=== PATIENT | female | born 1965 | race Caucasian/White ===

== ENCOUNTER 2017-07-21 08:53 | Day surgery (SDC) | payer MEDICAID, OTHER ==
[~2017-07-21] VITALS: Ht 165.1 cm; Wt 69.0 kg
[2017-07-21] VITALS (9 sets, daily range): BP systolic 95–118; BP diastolic 48–67; PULSE 50–61; RESP 13–20; Ht 165.1 cm; Wt 69.0 kg
[2017-07-21] MEDS ORDERED: FER325 PO (10:13)
[2017-07-21 11:21] LABS: BASOPHIL # 0.1 10^3/ul (0.0-0.1); BASOPHILS % 1.1 % (0.0-2.0); EOSINOPHILS # 0.4 10^3/ul (0.0-0.5); EOSINOPHILS % 5.5 % (0.0-7.0); HEMATOCRIT 37.1 % (37.0-47.0); HEMOGLOBIN 12.1 g/dl (12.0-16.0); LYMPHOCYTES # 2.6 10^3/ul (0.8-2.9); LYMPHOCYTES % 35.4 % (15.0-51.0); MEAN CORPUSCULAR HEMOGLOBIN 28.9 pg (29.0-33.0); MEAN CORPUSCULAR HGB CONC 32.6 g/dl (32.0-37.0); MEAN CORPUSCULAR VOLUME 88.5 fl (82.0-101.0); MONOCYTE # 0.6 10^3/ul (0.3-0.9); MONOCYTES % 8.6 % (0.0-11.0); NEUTROPHIL # 3.7 10^3/ul (1.6-7.5); PLATELET COUNT 348 10^3/UL (140-415); RED BLOOD COUNT 4.19 10^6/ul (4.20-5.40); RED CELL DISTRIBUTION WIDTH 15.3 % (11.5-14.5); WHITE BLOOD COUNT 7.5 10^3/ul (4.8-10.8)
[2017-07-21] MEDS ORDERED: FENTAnyl 50 MCG/ML VIAL ONE (11:48)
[2017-07-21] MEDS ORDERED: PROPOFOL 20 ML ONE (12:08)
[2017-07-21] MEDS ORDERED: SUCCINYLCHOLINE CHLORIDE 100 MG/5 ML SYG IV ONE (12:08)
[2017-07-21] MEDS ORDERED: LIDOCAINE 2% (SDV) 5 ML INJ ONE (12:08)
[2017-07-21] MEDS ORDERED: SUGAMMADEX SODIUM 200 MG/2 ML VIAL IV ONE (12:08)
[2017-07-21] MEDS ORDERED: ROCURONIUM 50 MG INJ ONE (12:08)
--- NOTE | 2017-07-21 12:23 | SIPON ---
Date/Time of Note Date/Time of Note DATE: 07/21/17 TIME: 12:20 Operative Report Preoperative Diagnosis Abnormal Uterine Bleeding Postoperative Diagnosis Same Operation/Procedure Performed Dilation and Curettage Surgeon Althea Hirsch MD diver assistant None Anesthesia: general Estimated blood loss: minimal Transfusion Required none Specimen Endocervical curetting and endometrial curetting Grafts/Implants none Complications none ALTHEA HIRSCH MD Jul 21, 2017 12:23
[2017-07-21] MEDS ORDERED: DIPHENHYDRAMINE 50 MG INJ IV PRN (12:30)
[2017-07-21] MEDS ORDERED: ONDANSETRON 4 MG INJ IV PRN (12:30)
[2017-07-21] MEDS ORDERED: METOCLOPRAMIDE 10 MG INJ IV PRN (12:30)
[2017-07-21] MEDS ORDERED: FENTAnyl 50 MCG/ML VIAL IV PRN ×2 (12:30)
[2017-07-21] MEDS ORDERED: HYDROmorphONE (0.2 MG/ML) 10ML SYG IV PRN ×2 (12:30)
[2017-07-21] MEDS ORDERED: MEPERIDINE 25 MG INJ IV PRN (12:30)
--- NOTE | 2017-07-21 13:41 | OPR ---
DATE OF OPERATION: 07/21/2017 PREOPERATIVE DIAGNOSIS: Abnormal uterine bleeding. POSTOPERATIVE DIAGNOSIS: Abnormal uterine bleeding. OPERATION PERFORMED: Endocervical curettage with dilation and endometrial curettage. SURGEON: Benjamín Almanza MD. ANESTHESIA: General. ANESTHESIOLOGIST: Dr. De Oliveira. OPERATIVE PROCEDURE: The patient was taken to the operating room and placed on the operating table in supine position. After adequate general anesthesia was given, the patient was placed in dorsal lithotomy position. The area was prepped and draped in the usual sterile fashion. A speculum was placed inside the vagina. Using Kevorkian curette, endocervical curettage was performed. The specimen obtained was sent to Pathology. Next, using cervical dilators, the cervical os was dilated and using a sharp curette, endometrial curettage was performed and specimen obtained was sent to Pathology. All the instruments were removed. Adequate hemostasis was assured. Patient tolerated the procedure well. The patient was awakened from anesthesia and transferred to recovery room in stable condition. ESTIMATED BLOOD LOSS: Minimal. COUNTS: All counts were correct. Dictated By: Benjamín Almanza MD /rosemary/neeru /Document#: [id number]
--- NOTE | 2017-07-21 15:16 | PREOPHP ---
DATE OF ADMISSION: 07/21/2017 HISTORY OF PRESENT ILLNESS: The patient is a 51-year-old female, 4, para 3, admitted with history of prolonged menses. PAST MEDICAL HISTORY: Unremarkable. PAST SURGICAL HISTORY: Bilateral tubal ligation. ALLERGIES: NO KNOWN ALLERGIES. FAMILY HISTORY: Diabetes. PHYSICAL EXAMINATION: VITAL SIGNS: The patient is afebrile. Vital signs stable. HEENT: Within normal limits. NECK: Within normal limits. CHEST: Within normal limits. ABDOMEN: Soft, nontender, and nondistended. PELVIC: Normal. EXTREMITIES: Within normal limits. NEUROLOGIC: Within normal limits. IMPRESSION: Abnormal uterine bleeding. PLAN: Dilation and curettage. Risks, benefits and alternatives of procedure were explained to the patient. The patient states she understands and gave me informed consent for the procedure. Dictated By: Benjamín Almanza MD /rosmeary/romelia /Document#: [id number]
--- NOTE | 2017-07-22 00:15 | RADRPT ---
Vent Rate: 55 bpm RR Interval: 0 msec WA Interval: 154 msec QRS Duration: 84 msec QT Interval: 466 msec QTC Interval: 445 msec P-R-T Kimball: 50 - 62 - 39 degrees Sinus bradycardia Otherwise normal ECG Electronically Signed By: Marco Sánchez [id number]
== END 2017-07-21 13:54 | disposition home or self-care (01) ==
LOC: SDS 08:53
PROVIDERS: ATTEND Obstetrics & Gynecology
DX: N93.9 Abnormal uterine and vaginal bleeding, unspecified (principal)
CPT/HCPCS: 58120; 85025; 86850; 86900; 86901; 88305; 93005; J2175; J2765; J3010; Z7512; Z7610; J7999

== ENCOUNTER 2017-07-24 13:28 | Emergency (ER) | payer OTHER ==
[~2017-07-24] VITALS: Ht 162.6 cm; Wt 71.0 kg
[~2017-07-24 13:28] MED LIST: FER325 PO
[2017-07-24 13:45] VITALS: Ht 162.6 cm; Wt 71.0 kg
[2017-07-24 15:58] LABS: BASOPHIL # 0.1 10^3/ul (0.0-0.1); EOSINOPHILS # 0.5 10^3/ul (0.0-0.5); EOSINOPHILS % 6.3 % (0.0-7.0); HEMATOCRIT 35.5 % (37.0-47.0); HEMOGLOBIN 11.9 g/dl (12.0-16.0); LYMPHOCYTES # 2.6 10^3/ul (0.8-2.9); LYMPHOCYTES % 35.8 % (15.0-51.0); MEAN CORPUSCULAR HEMOGLOBIN 29.7 pg (29.0-33.0); MEAN CORPUSCULAR HGB CONC 33.5 g/dl (32.0-37.0); MEAN CORPUSCULAR VOLUME 88.5 fl (82.0-101.0); MEAN PLATELET VOLUME 9.4 fl (7.4-10.4); MONOCYTE # 0.7 10^3/ul (0.3-0.9); MONOCYTES % 9.6 % (0.0-11.0); NEUTROPHIL # 3.4 10^3/ul (1.6-7.5); NEUTROPHILS % 47.2 % (39.0-77.0); PLATELET COUNT 344 10^3/UL (140-415); RED BLOOD COUNT 4.01 10^6/ul (4.20-5.40); RED CELL DISTRIBUTION WIDTH 14.8 % (11.5-14.5); WHITE BLOOD COUNT 7.2 10^3/ul (4.8-10.8)
[2017-07-24 16:29] LABS: CALCIUM 9.2 mg/dl (8.4-10.2); CREATININE 0.71 mg/dl (0.44-1.00); POTASSIUM 3.8 mmol/L (3.5-5.1)
--- NOTE | 2017-07-24 17:03 | RADRPT ---
PROCEDURE: US Pelvis Transabdominal and Transvaginal. CLINICAL INDICATION: Vaginal bleeding after recent dilatation and curettage. TECHNIQUE: Multiple sonographic images of the pelvis were obtained utilizing botello scale, Doppler a nd color flow imaging with transabdominal and endovaginal technique. The images were reviewed on a PACS workstation. COMPARISON: None. FINDINGS: The uterus is visualized and measures 9.9 x 5.7 x 8.8 cm. The endometrial echo complex measures 2.6 mm in thickness. A posterior uterine fibroid measures 3.4 cm. An anterior uterine fibroid measures 2 .9 cm. The right ovary measures 3.1 x 1.6 x 2.8 cm . The left ovary is not well visualized. The right ova ry demonstrates a normal echogenicity and vascularity.. No adnexal masses or pelvic free fluid are noted. IMPRESSION: Multifibroid uterus. Left ovary not well visualized. If characterization of this structure is needed repeat exam or CT/MR I is recommended. If further characterization of the organs of the pelvis is needed MRI should be considered. RPTAT: AA .Konstantin Barrett MD, MD Date Time Electronically viewed and signed by .Konstantin Barrett MD, on 07/24/2017 17:03 .P/
[2017-07-24 17:18] LABS: ADD UMIC NO; UR ASCORBIC ACID 40 mg/dL (NEGATIVE); UR BILIRUBIN (Dip) NEGATIVE (NEGATIVE); UR BLOOD (Dip) NEGATIVE (NEGATIVE); UR CLARITY CLEAR (CLEAR); UR COLOR YELLOW (YELLOW); UR GLUCOSE (Dip) NEGATIVE (NEGATIVE); UR KETONES (Dip) NEGATIVE (NEGATIVE); UR LEUKOCYTE ESTERASE (Dip) NEGATIVE Leu/ul (NEGATIVE); UR NITRITE (Dip) NEGATIVE (NEGATIVE); UR SPECIFIC GRAVITY (Dip) 1.012 (1.003-1.030); UR TOTAL PROTEIN (Dip) NEGATIVE (NEGATIVE); UR UROBILINOGEN (Dip) NEGATIVE (NEGATIVE)
[2017-07-24] MEDS ORDERED: KETOROLAC 30 MG INJ IV STA (17:22)
[2017-07-24 17:31] VITALS: BP 109/55; PULSE 55; RESP 18
--- NOTE | 2017-07-24 18:11 | ERD ---
ER Documentation Chief Complaint Date/Time DATE: 07/24/17 TIME: 18:06 Chief Complaint p D+C 07/14/17: dizzy, chills, pelvic pain x3d. VBx2w saturating 1pad/ hr HPI 51-year-old female with a history of uterine fibroids status post D and C 3 days ago performed by Dr. Archie jordan from his office for evaluation for dizziness and chills. She states that the next day after surgery she felt fine. However her vaginal bleeding has increased ever since surgery. She is using about 1 pad per hour. She has also been feeling lightheaded and having mild headaches which she has had before. She denies any fever, nausea, vomiting , diarrhea, constipation, or significant abdominal pain. She does have some lower abdominal cramping when she has the bleeding. ROS All systems reviewed and are negative except as per history of present illness. Medications Home Meds Reported Medications Ferrous Sulfate* (Ferrous Sulfate*) 325 Mg Tabec, 325 MG PO DAILY, TAB 07/21/17 Allergies Allergies: Coded Allergies: No Known Allergies (Verified Allergy, Unknown, 07/24/17) PMhx/Soc History of Surgery: Yes (BTL) Anesthesia Reaction: No Hx Neurological Disorder: No Hx Respiratory Disorders: No Hx Cardiac Disorders: No Hx Psychiatric Problems: No Hx Miscellaneous Medical Probl: Yes (HEAVY MESTRUATION) Hx Alcohol Use: Yes (OCCASIONAL) Hx Substance Use: No Hx Tobacco Use: Yes Smoking Status: Current every day smoker FmHx Family History: No diabetes Physical Exam Vitals Vital Signs Date Time Temp Pulse Resp B/P Pulse Ox O2 Delivery O2 Flow Rate FiO2 07/24/17 17:31 55 18 109/55 100 Room Air 07/24/17 13:45 98.5 61 16 118/58 99 Physical Exam Const: Well-appearing, no apparent distress, nontoxic Head: Atraumatic Eyes: Normal Conjunctiva ENT: Normal External Ears, Nose and Mouth. Neck: Full range of motion..~ No meningismus. Resp: Clear to auscultation bilaterally Cardio: Regular rate and rhythm, no murmurs Abd: Soft, non tender, non distended. Rebound or guarding. No masses palpated. Normal bowel sounds Skin: No petechiae or rashes Back: No midline or flank tenderness Ext: No cyanosis, or edema Neur: Awake and alert, oriented 3, strength and sensations intact, cranial nerves intact, normal gait Psych: Normal Mood and Affect Result Diagram: 07/24/17 1545 07/24/17 1545 Results 24 hrs Laboratory Tests Test 07/24/17 15:45 07/24/17 16:50 White Blood Count 7.210^3/ul Red Blood Count 4.0110^6/ul Hemoglobin 11.9g/dl Hematocrit 35.5% Mean Corpuscular Volume 88.5fl Mean Corpuscular Hemoglobin 29.7pg Mean Corpuscular Hemoglobin Concent 33.5g/dl Red Cell Distribution Width 14.8% Platelet Count 24293^3/UL Mean Platelet Volume 9.4fl Neutrophils % 47.2% Lymphocytes % 35.8% Monocytes % 9.6% Eosinophils % 6.3% Basophils % 1.0% Nucleated Red Blood Cells % 0.0/100WBC Neutrophils # 3.410^3/ul Lymphocytes # 2.610^3/ul Monocytes # 0.710^3/ul Eosinophils # 0.510^3/ul Basophils # 0.110^3/ul Nucleated Red Blood Cells # 0.010^3/ul Sodium Level 141mmol/L Potassium Level 3.8mmol/L Chloride Level 106mmol/L Carbon Dioxide Level 26mmol/L Anion Gap 13 Blood Urea Nitrogen 18mg/dl Creatinine 0.71mg/dl Glucose Level 87mg/dl Calcium Level 9.2mg/dl Urine Color YELLOW Urine Clarity CLEAR Urine pH 8.0 Urine Specific [place] 1.012 Urine Ketones NEGATIVEmg/dL Urine Nitrite NEGATIVEmg/dL Urine Bilirubin NEGATIVEmg/dL Urine Urobilinogen NEGATIVEmg/dL Urine Leukocyte Esterase NEGATIVELeu/ul Urine Hemoglobin NEGATIVEmg/dL Urine Glucose NEGATIVEmg/dL Urine Total Protein NEGATIVEmg/dl Current Medications Medications (Trade) Dose Ordered Sig/Dimas Route PRN Reason Start Time Stop Time Status Last Admin Dose Admin Ketorolac Tromethamine (Toradol) 30 mg ONCE STAT IV 07/24/17 17:22 07/24/17 17:23 DC 07/24/17 17:40 Procedures/MDM Labs CBC: no anemia or evidence of infection BMP: No evidence of electrolyte abnormality, renal failure, hypoglycemia, liver failure, or biliary obstruction UA: no evidence of infection US transvaginal: multifibroid uterus, no other abnormalities MDM Patient is presenting with lightheadedness and vaginal bleeding after the uterine surgery 3 days ago. Her vitals are stable and she is afebrile and well- appearing. Her abdominal exam was benign. CBC was done to evaluate for anemia and she only has mild anemia with no other abnormalities. Urinalysis did not show evidence of infection. Ultrasound just showed fibroids. I spoke with her sports centre manager and discuss the results. He agrees that she is stable for discharge at this time. I discussed the results with the patient and the plan and she feels comfortable with the plan. I have given her Toradol here headache , which improved all of her symptoms. Return precautions were discussed with the patient. At this time I do not have suspicion for a pelvic infection. Patient discharged in a stable condition. Departure Diagnosis: Primary Impression: Dizziness Additional Impression: Vaginal bleeding Condition: Stable Patient Instructions: Understanding Uterine Bleeding, Dizziness, Unk Cause, Uterine Fibroids Referrals: ALTHEA HIRSCH MD Additional Instructions: Return to the ER for any worsening symptoms. Otherwise, follow-up with your sports centre manager within 2 weeks. SALINAS DOMINIQUE MD Jul 24, 2017 18:11
[2017-07-24] MEDS ORDERED: MECL12.574 PO (18:43)
== END 2017-07-24 18:55 | disposition home or self-care (01) ==
LOC: E/R 13:28
DX: R42 Dizziness and giddiness (principal); N93.9 Abnormal uterine and vaginal bleeding, unspecified; F17.210 Nicotine dependence, cigarettes, uncomplicated
CPT/HCPCS: 36415; 76856; 80048; 81003; 85025; 86850; 86900; 86901; 96374; J1885; Z7502

== ENCOUNTER 2017-08-03 10:07 | Emergency (ER) | payer OTHER ==
[~2017-08-03] VITALS: Ht 152.4 cm; Wt 67.0 kg
[~2017-08-03 10:07] MED LIST changes: +MECL12.574 PO
[2017-08-03 10:12] VITALS: Ht 152.4 cm; Wt 67.0 kg
[2017-08-03] MEDS ORDERED: ONDANSETRON 4 MG INJ IV STA (11:25)
[2017-08-03] MEDS ORDERED: SOD CHLORIDE 0.9% 1,000 ML IV STA (11:25)
--- NOTE | 2017-08-03 11:56 | ERD ---
ER Documentation Chief Complaint Date/Time DATE: 08/03/17 TIME: 11:53 Chief Complaint dizziness x 20 days HPI Patient is a 51-year-old female presents to the ED with left-sided pelvic pain, nausea, dizziness, body aches and chills 2 weeks. Patient states that her primary care provider, Dr Lagunas sent her for evaluation. Patient has hx of fibroids and had a D/c on 07/21/2017. States she has been having vaginal bleeding since, last 3 days has been using 8 pads a day. STates the bleeding is similar to what she experienced prior to fibroids. She also states dizziness has gotten worse. Denies trauma or falls, LOC. ROS All systems reviewed and are negative except as per history of present illness. Medications Home Meds Active Scripts Ondansetron (Ondansetron Odt) 4 Mg Tab.rapdis, 4 MG PO Q6H Y for NAUSEA AND/OR VOMITING, #10 TAB Prov:NICKOLAS VARGAS PA-C 08/03/17 Meclizine Hcl* (Antivert*) 12.5 Mg Tab, 12.5 MG PO Q6H Y for DIZZINESS, #20 TAB Prov:NICKOLAS VARGAS PA-C 08/03/17 Meclizine Hcl* (Antivert*) 12.5 Mg Tab, 25 MG PO Q6H Y for DIZZINESS, #20 TAB Prov:SALINAS DOMINIQUE MD 07/24/17 Reported Medications Ferrous Sulfate* (Ferrous Sulfate*) 325 Mg Tabec, 325 MG PO DAILY, TAB 07/21/17 Allergies Allergies: Coded Allergies: No Known Allergies (Verified Allergy, Unknown, 07/24/17) PMhx/Soc History of Surgery: Yes (BTL) Anesthesia Reaction: No Hx Neurological Disorder: No Hx Respiratory Disorders: No Hx Cardiac Disorders: No Hx Psychiatric Problems: No Hx Miscellaneous Medical Probl: Yes (HEAVY MESTRUATION) Hx Alcohol Use: Yes (OCCASIONAL) Hx Substance Use: No Hx Tobacco Use: Yes Smoking Status: Never smoker FmHx Family History: No coronary disease, No diabetes, No other Physical Exam Vitals Vital Signs Date Time Temp Pulse Resp B/P Pulse Ox O2 Delivery O2 Flow Rate FiO2 08/03/17 10:12 98.1 63 18 132/63 99 Physical Exam GENERAL: Well-developed, well-nourished female. Appears in mild distress. HEAD: Normocephalic, atraumatic. EYES: Pupils are equally reactive bilaterally. EOMs grossly intact. No conjunctival erythema. ENT: Moist mucous membranes. No uvula deviation. No kissing tonsils. No exudates. NECK: Supple. No lymphadenopathy or thyromegaly. No meningismus. negative kernig. negative brudinski. LUNG: Clear to auscultation bilaterally. No rhonchi, wheezing, rales or coarse breath sounds. HEART: Regular rate and rhythm. No murmurs, rubs or gallops. ABDOMEN: No scars, ecchymosis or rashes noted. Soft, and nondistended. Positive bowel sounds in all four quadrants. No rebound tenderness, no guarding. (-) McBurneys point tenderness. No CVA tenderness. left sided pelvic pain. BACK: No midline tenderness. Extremities: Equal pulses bilaterally. No peripheral clubbing, cyanosis or edema. No unilateral leg swelling. NEUROLOGIC: Alert and oriented. Moving all four extremities. 5/5 strength in all extremities. Normal speech. Steady gait. cn 2-12 intact. no ataxis. negative romberg SKIN: Normal color. Warm and dry. No rashes or lesions. Capillary refill < 2 seconds Result Diagram: 08/03/17 1150 08/03/17 1150 Results 24 hrs Laboratory Tests Test 08/03/17 11:48 08/03/17 11:50 Urine Color YELLOW Urine Clarity SLIGHTLY CLOUDY Urine pH 7.0 Urine Specific [place] 1.015 Urine Ketones NEGATIVEmg/dL Urine Nitrite NEGATIVEmg/dL Urine Bilirubin NEGATIVEmg/dL Urine Urobilinogen NEGATIVEmg/dL Urine Leukocyte Esterase NEGATIVELeu/ul Urine Microscopic RBC > 182/HPF Urine Microscopic WBC 2/HPF Urine Bacteria FEW/HPF Urine Hemoglobin 1+mg/dL Urine Glucose NEGATIVEmg/dL Urine Total Protein NEGATIVEmg/dl White Blood Count 7.710^3/ul Red Blood Count 4.1710^6/ul Hemoglobin 12.6g/dl Hematocrit 36.9% Mean Corpuscular Volume 88.5fl Mean Corpuscular Hemoglobin 30.2pg Mean Corpuscular Hemoglobin Concent 34.1g/dl Red Cell Distribution Width 14.3% Platelet Count 77629^3/UL Mean Platelet Volume 9.4fl Neutrophils % 48.0% Lymphocytes % 37.1% Monocytes % 7.8% Eosinophils % 5.4% Basophils % 1.4% Nucleated Red Blood Cells % 0.0/100WBC Neutrophils # 3.710^3/ul Lymphocytes # 2.910^3/ul Monocytes # 0.610^3/ul Eosinophils # 0.410^3/ul Basophils # 0.110^3/ul Nucleated Red Blood Cells # 0.010^3/ul Sodium Level 144mmol/L Potassium Level 3.7mmol/L Chloride Level 107mmol/L Carbon Dioxide Level 26mmol/L Anion Gap 15 Blood Urea Nitrogen 15mg/dl Creatinine 0.75mg/dl Glucose Level 105mg/dl Calcium Level 9.1mg/dl Total Bilirubin 0.2mg/dl Direct Bilirubin 0.00mg/dl Indirect Bilirubin 0.2mg/dl Aspartate Amino Transf (AST/SGOT) 29IU/L Alanine Aminotransferase (ALT/SGPT) 40IU/L Alkaline Phosphatase 67IU/L Total Protein 7.8g/dl Albumin 4.5g/dl Globulin 3.30g/dl Albumin/Globulin Ratio 1.36 Lipase 99U/L Current Medications Medications (Trade) Dose Ordered Sig/Dimas Route PRN Reason Start Time Stop Time Status Last Admin Dose Admin Sodium Chloride (NS) 1,000 ml @ 1,000 mls/hr Q1H STAT IV 08/03/17 11:25 08/03/17 12:24 DC 08/03/17 11:57 Ondansetron HCl (Zofran Inj) 4 mg ONCE STAT IV 08/03/17 11:25 08/03/17 11:28 DC 08/03/17 11:58 IV Flush 10 ml 10 ml STK-MED ONCE .ROUTE 08/03/17 12:58 08/03/17 12:59 DC 08/03/17 13:16 Sodium Chloride (NS) 100 ml @ ud STK-MED ONCE .ROUTE 08/03/17 12:58 08/03/17 12:59 DC 08/03/17 13:17 Iohexol (Omnipaque 300mg/ ml) 150 ml STK-MED ONCE .ROUTE 08/03/17 12:58 08/03/17 12:59 DC 08/03/17 13:19 Procedures/MDM ER COURSE: I kept the patient and/or family informed of laboratory and diagnostic imaging results throughout the emergency room course. EKG, MONITORS, & DIAGNOSTIC IMAGING: [place] [id number] Radiology Main Line: [phone] DIAGNOSTIC IMAGING REPORT Patient: IVAN REYNA : 1965 Age: 51 Sex: F MR #: [id number] DOS: 08/03/17 1125 Ordering MD: NICKOLAS VARGAS PA-C Location: [facility] Room/Bed: PROCEDURE: CT Abdomen and Pelvis with contrast. CLINICAL INDICATION: Abdomen and pelvis pain. TECHNIQUE: CT scan of the abdomen and pelvis with contrast was performed. The patient was scanned following the uncomplicated intravenous administration of 100 cc of Omnipaque-300. Coronal and sagittal reformatted images were obtained from the axial source images. Images were reviewed on a high- resolution PACS workstation. Total exam DLP is 761.43 mGy-cm. CTDIvol is 12.56 mGy. One or more of the following dose reduction techniques were used: Automated exposure control, adjustment of the mA and/or kV according to patient size, use of iterative reconstruction technique. COMPARISON: None. FINDINGS: The lung bases are normal. There is no pleural effusion. The liver is normal in size and attenuation. There is no focal hepatic lesion. The gallbladder is contracted. There is mild edema surrounding the gallbladder. The spleen is normal in size. There is no focal splenic lesion. Both adrenals are normal with no enlargement or mass. The pancreas is unremarkable with no mass or evidence of pancreatitis. Both kidneys demonstrate normal contrast enhancement. There is no renal mass or hydronephrosis. The abdominal aorta is not dilated. There is calcification in the aorta consistent with atherosclerosis. There is no retroperitoneal lymphadenopathy or mass. There is no pelvic lymphadenopathy. The uterus is markedly enlarged and has multiple fibroids. There is no other pelvic mass. The bladder and distal ureters are normal. The appendix is well seen and appears normal. There is diverticulosis of the colon without evidence of diverticulitis. The bowel and mesentery are otherwise normal. There is no free fluid or free gas. The osseous structures are unremarkable with no fracture or lytic lesion. IMPRESSION: 1. Contracted gallbladder with mild surrounding edema. This may indicate cholecystitis. Correlation with gallbladder ultrasound should be considered. 2. Atherosclerosis. 3. Enlarged uterus with multiple fibroids. 4. Normal appendix. 5. Diverticulosis of the colon without evidence of diverticulitis. 6. Otherwise unremarkable study. RPTAT: QQ .Sridhar Carr MD, Date Time Electronically viewed and signed by .Sridhar Carr MD, MD on 08/03/2017 13:24 .R/ CC: NICKOLAS VARGAS PA-C [place] [address] Radiology Main Line: [phone] DIAGNOSTIC IMAGING REPORT Patient: IVAN REYNA : 1965 Age: 51 Sex: F MR #: [id number] DOS: 08/03/17 1125 Ordering MD: NICKOLAS VARGAS PA-C Location: [facility] Room/Bed: PROCEDURE: US Pelvis. CLINICAL INDICATION: Pelvic pain and vaginal bleeding for 3 months. TECHNIQUE: The pelvis was evaluated with transabdominal and transvaginal sonography in the axial and sagittal planes. COMPARISON: No prior study is available for comparison. FINDINGS: The uterus measures 8.2 x 5.8 x 7.7 cm. The uterus is diffusely heterogeneous with multiple masses consistent with fibroids. A posterior right fibroid measures 3.4 x 2.5 x 3.5 cm. A left lateral posterior fibroid measures 3.6 x 3.4 x 3.5 cm. A left lateral fibroid measures 3.3 x 3.0 x 2.9 cm. The endometrium is unremarkable measuring 11.9 mm. The ovaries are not visualized. There is no other pelvic mass or free fluid. IMPRESSION: 1. Enlarged uterus with multiple fibroids. 2. Ovaries not visualized. 3. Otherwise normal pelvic ultrasound. RPTAT: QQ .Sridhar Carr MD, Date Time Electronically viewed and signed by .Sridhar Carr MD, MD on 08/03/2017 13:01 .R/ CC: NICKOLAS VARGAS PA-C MEDICATIONS: zofran. tolerated well with no adverse reaction. LAB INTERPRETATION: CBC showed no evidence of systemic infection or severe anemia. CMP showed no evidence of electrolyte abnormalities, severe acidosis, alkalosis, renal failure , or liver disease. Lipase showed no evidence of acute pancreatitis. UA showed no evidence of leukocytes, nitrites or hematuria. Urine test was negative. MEDICAL DECISION MAKING: This is a 51 year old female who presents with multiple complaints after having a D/C on Jul 21. Vital signs were reviewed. Patient is afebrile. Patient is not hypoxic. I consulted with my supervising physician Dr. Whitley who reviewed all laboratory studies and imaging studies. Patient's CT scan shows contracted gallbladder with mild surrounding edema, may indicate choleycystitis. Patient does not have fever, white count, pain in ruq and does not have elevated liver enzymes. Dr. Almanza was paged to discuss case with. All laboratory studies and imaging studies and case discussed with Dr. Almanza and states there is no gynecological emergency. I consulted with Dr. Whitley regarding patient agrees with my medical decision making and discharge plans. CT brain ordered and within normal limits. U/s pelvic shows multiple fibroids. Pt is hemodynamically stable and shows no sign of anemia. Low suspicion for ectopic , , molar , endometriosis, PID, cervicitis, septic , molar , HELLP syndrome, preeclampsia, eclampsia, placenta previa, placenta abruptia. Low suspicion for intracranial hemorrhage, meningitis, intracranial mass, concussion, temporal arteritis, stroke, elevated intracranial pressure, seizure. Low suspicion for ACS, AAA, perforated ulcer, bowel obstruction, cholecystitis, choledocholithiasis, cholangitis, pancreatitis , hepatic abscess, appendicitis, diverticulitis, gastroenteritis, hepatitis, peptic ulcer disease, HELLP syndrome. Patient is stable and ready for discharge. DISCHARGE: At this time, patient is stable for discharge and outpatient management with no new complaints during the ER course. Patient was sent home with Zofran, meclizine and a copy of all imaging and laboratory studies and to follow-up with primary care provider. Patient will be discharged home with instructions to recheck for new or worsening symptoms such as fever, nausea, weakness, LOC and to follow up with primary care in the next 1-2 days. Patient was advised to return to the ER for any new or worsening symptoms. Plan was discussed and patient and/or family understands and agrees. Home instructions were given. Departure Diagnosis: Primary Impression: Dizziness Additional Impression: Pelvic pain Condition: Stable NICKOLAS VARGAS PA-C Aug 03, 2017 11:55 NICKOLAS VARGAS PA-C Aug 03, 2017 11:55
[2017-08-03 12:17] LABS: BASOPHIL # 0.1 10^3/ul (0.0-0.1); BASOPHILS % 1.4 % (0.0-2.0); EOSINOPHILS # 0.4 10^3/ul (0.0-0.5); EOSINOPHILS % 5.4 % (0.0-7.0); HEMATOCRIT 36.9 % (37.0-47.0); HEMOGLOBIN 12.6 g/dl (12.0-16.0); LYMPHOCYTES # 2.9 10^3/ul (0.8-2.9); LYMPHOCYTES % 37.1 % (15.0-51.0); MEAN CORPUSCULAR HEMOGLOBIN 30.2 pg (29.0-33.0); MEAN CORPUSCULAR HGB CONC 34.1 g/dl (32.0-37.0); MEAN CORPUSCULAR VOLUME 88.5 fl (82.0-101.0); MEAN PLATELET VOLUME 9.4 fl (7.4-10.4); MONOCYTE # 0.6 10^3/ul (0.3-0.9); MONOCYTES % 7.8 % (0.0-11.0); NEUTROPHIL # 3.7 10^3/ul (1.6-7.5); PLATELET COUNT 340 10^3/UL (140-415); RED BLOOD COUNT 4.17 10^6/ul (4.20-5.40); RED CELL DISTRIBUTION WIDTH 14.3 % (11.5-14.5); WHITE BLOOD COUNT 7.7 10^3/ul (4.8-10.8)
[2017-08-03 12:20] LABS: ADD UMIC YES; UR ASCORBIC ACID 40 mg/dL (NEGATIVE); UR BACTERIA FEW /HPF (NONE SEEN); UR BILIRUBIN (Dip) NEGATIVE (NEGATIVE); UR BLOOD (Dip) 1+ mg/dL (NEGATIVE); UR CLARITY SLIGHTLY CLOUDY (CLEAR); UR COLOR YELLOW (YELLOW); UR GLUCOSE (Dip) NEGATIVE (NEGATIVE); UR KETONES (Dip) NEGATIVE (NEGATIVE); UR LEUKOCYTE ESTERASE (Dip) NEGATIVE Leu/ul (NEGATIVE); UR NITRITE (Dip) NEGATIVE (NEGATIVE); UR RBC > 182 /HPF (0-5); UR SPECIFIC GRAVITY (Dip) 1.015 (1.003-1.030); UR TOTAL PROTEIN (Dip) NEGATIVE (NEGATIVE); UR UROBILINOGEN (Dip) NEGATIVE (NEGATIVE)
[2017-08-03 12:24] LABS: ALBUMIN 4.5 g/dl (3.3-4.9); ALBUMIN/GLOBULIN RATIO 1.36; BILIRUBIN,INDIRECT 0.2 mg/dl (0-1.1); BILIRUBIN,TOTAL 0.2 mg/dl (0.2-1.3); CALCIUM 9.1 mg/dl (8.4-10.2); CREATININE 0.75 mg/dl (0.44-1.00); POTASSIUM 3.7 mmol/L (3.5-5.1); TOTAL PROTEIN 7.8 g/dl (6.1-8.1)
[2017-08-03] MEDS ORDERED: SOD CHLORIDE 0.9% 100 ML ONE (12:58)
[2017-08-03] MEDS ORDERED: IOHEXOL 300MG/ML 150 ML BTL ONE (12:58)
--- NOTE | 2017-08-03 13:01 | RADRPT ---
PROCEDURE: US Pelvis. CLINICAL INDICATION: Pelvic pain and vaginal bleeding for 3 months. TECHNIQUE: The pelvis was evaluated with transabdominal and transvaginal sonography in the axial a nd sagittal planes. COMPARISON: No prior study is available for comparison. FINDINGS: The uterus measures 8.2 x 5.8 x 7.7 cm. The uterus is diffusely heterogeneous with multiple masses c onsistent with fibroids. A posterior right fibroid measures 3.4 x 2.5 x 3.5 cm. A left lateral poste rior fibroid measures 3.6 x 3.4 x 3.5 cm. A left lateral fibroid measures 3.3 x 3.0 x 2.9 cm. The endometrium is unremarkable measuring 11.9 mm. The ovaries are not visualized. There is no other pelvic mass or free fluid. IMPRESSION: 1. Enlarged uterus with multiple fibroids. 2. Ovaries not visualized. 3. Otherwise normal pelvic ultrasound. RPTAT: QQ .Sridhar Carr MD, MD Date Time Electronically viewed and signed by .Sridhar Carr MD, on 08/03/2017 13:01 .R/
--- NOTE | 2017-08-03 13:24 | RADRPT ---
PROCEDURE: CT Abdomen and Pelvis with contrast. CLINICAL INDICATION: Abdomen and pelvis pain. TECHNIQUE: CT scan of the abdomen and pelvis with contrast was performed. The patient was scanned following the uncomplicated intravenous administration of 100 cc of Omnipaque-300. Coronal and sag ittal reformatted images were obtained from the axial source images. Images were reviewed on a high- resolution PACS workstation. Total exam DLP is 761.43 mGy-cm. CTDIvol is 12.56 mGy. One or more o f the following dose reduction techniques were used: Automated exposure control, adjustment of the m A and/or kV according to patient size, use of iterative reconstruction technique. COMPARISON: None. FINDINGS: The lung bases are normal. There is no pleural effusion. The liver is normal in size and attenuation. There is no focal hepatic lesion. The gallbladder is contracted. There is mild edema surrounding the gallbladder. The spleen is normal in size. There is no focal splenic lesion. Both adrenals are normal with no enlargement or mass. The pancreas is unremarkable with no mass or evidence of pancreatitis. Both kidneys demonstrate normal contrast enhancement. There is no renal mass or hydronephrosis. The abdominal aorta is not dilated. There is calcification in the aorta consistent with atherosclero sis. There is no retroperitoneal lymphadenopathy or mass. There is no pelvic lymphadenopathy. The uterus is markedly enlarged and has multiple fibroids. There is no other pelvic mass. The bladder and distal ureters are normal. The appendix is well seen and appears normal. There is diverticulosis of the colon without evidence of diverticulitis. The bowel and mesentery are otherwise normal. There is no free fluid or free gas. The osseous structures are unremarkable with no fracture or lytic lesion. IMPRESSION: 1. Contracted gallbladder with mild surrounding edema. This may indicate cholecystitis. Correlation with gallbladder ultrasound should be considered. 2. Atherosclerosis. 3. Enlarged uterus with multiple fibroids. 4. Normal appendix. 5. Diverticulosis of the colon without evidence of diverticulitis. 6. Otherwise unremarkable study. RPTAT: QQ .Sridhar Carr MD, Date Time Electronically viewed and signed by .Sridhar Carr MD, on 08/03/2017 13:24 .R/
--- NOTE | 2017-08-03 15:13 | RADRPT ---
PROCEDURE: CT brain without contrast CLINICAL INDICATION: Headache, dizziness TECHNIQUE: CT of the brain without contrast was performed on a multidetector CT scanner, with multi planar reformats. One or more of the following dose reduction techniques were used: Automated expos ure control, adjustment in mA and / or kV according to patient size, use of iterative reconstructive technique. CTDIvol = 44 mGy; DLP = 630 mGy-cm. COMPARISON: None available FINDINGS: No acute intracranial hemorrhage is identified. No extra-axial fluid collection is seen. There is no mass effect. No midline shift is identified. Ventricles and sulci are within normal limits for size and configuration. There is a punctate calcification at the peripheral right frontal lobe. Sierra-white differentiation is preserved. Calvarium and skull base are intact. Mastoid air cells and imaged paranasal sinuses grossly clear. IMPRESSION: 1. No evidence of acute intracranial pathology. 2. Punctate cerebral calcification, which may be post infectious/inflammatory, possibly sequela of neurocysticercosis. RPTAT: VV .Hussein Lucero MD, MD Date Time Electronically viewed and signed by .Hussein Lucero MD, on 08/03/2017 15:13 .O/
[2017-08-03] MEDS ORDERED: MECL12.574 PO (15:56)
[2017-08-03] MEDS ORDERED: ONDA4TAB14 PO (15:56)
== END 2017-08-03 16:37 | disposition home or self-care (01) ==
LOC: FTE 10:07
DX: R42 Dizziness and giddiness (principal); R10.2 Pelvic and perineal pain; R11.0 Nausea; Z87.891 Personal history of nicotine dependence
CPT/HCPCS: 36415; 70450; 74177; 76830; 76856; 80053; 81001; 83690; 85025; 96374; J2405; J7030; Q9967; Z7502; Z7610